=== PATIENT | male | born 1990 | race American Indian/Alaskan Native ===

== ENCOUNTER 2018-10-09 13:17 | Emergency (ER) | payer OTHER ==
[2018-10-09 13:24] VITALS: BP 113/65
--- NOTE | 2018-10-09 13:24 | Event Note ---
ED Screening Note ED Screening Note: pt states he was at a bar lounge and was smoking marijuana was feeling light- headed and states he had a syncopal episode two nights ago was also drinking ETOH denies any other drug use having generalized weakness/lightheadedness no further syncopal episodes no PMHx no allergies to meds no CP prior to syncopal episode This initial assessment/diagnostic orders/clinical plan/treatment(s) is/are subject to change based on patients health status, clinical progression and re- assessment by fellow clinical providers in the ED. Further treatment and workup at subsequent clinical providers discretion. Patient/guardian urged not to elope from the ED as their condition may be serious if not clinically assessed and managed. Initial orders include: labs, UA, UDS, EKG
--- NOTE | 2018-10-09 14:15 | Emergency Department Report ---
- General Chief complaint: Weakness Stated complaint: FAINT/LIGHTHEADED/FATIGUE Time Seen by Provider: 10/09/18 13:21 Source: patient Mode of arrival: Ambulatory Limitations: No Limitations - Related Data Allergies Allergy/AdvReac Type Severity Reaction Status Date / Time No Known Allergies Allergy Unverified 10/09/18 13:18 ED Review of Systems ROS: Stated complaint: FAINT/LIGHTHEADED/FATIGUE Other details as noted in HPI ED Past Medical Hx - Past Medical History Previous Medical History?: No - Surgical History Additional Surgical History: tube in right ear - Social History Smoking Status: Light Tobacco Smoker Substance Use Type: Marijuana ED Physical Exam - General Limitations: No Limitations ED Course Vital Signs 10/09/18 13:21 Temperature 98 F Pulse Rate 72 Respiratory 16 Rate Blood Pressure 113/65 O2 Sat by Pulse 100 Oximetry ED Medical Decision Making - Lab Data Result diagrams: 10/09/18 13:45 10/09/18 13:45 Critical care attestation.: If time is entered above; I have spent that time in minutes in the direct care of this critically ill patient, excluding procedure time. ED Disposition Clinical Impression: Non-cardiac syncope, Treatment refusal, Malaise and fatigue Disposition: DC-01 TO HOME OR SELFCARE Is pt being admited?: No Does the pt Need Aspirin: No Condition: Stable Instructions: Syncope (ED), Mesalamine (Rectal), Cannabis Abuse (ED), Fatigue (ED) Additional Instructions: Please continue to drink plenty of water and leave 88 ounce glasses of water daily. Refrain from using marijuana as this could be a toxin to body. You refused here head CT scan after complaining of passing out 2 in 1 day with redness and swelling to your scalp area. IF Symptoms worsens, please return to emergency room Referrals: [facility] [Outside] - 10/11/18 CARLY ARAUZ MD [Staff Physician] - 10/10/18 Forms: AMA Form, Accompanied Note, Work/School Release Form(ED)
[2018-10-09 14:38] LABS: BUN/Creatinine Ratio 14; Blood Urea Nitrogen 11 mg/dL (9-20); Calcium 9.3 mg/dL (8.4-10.2); Hemolysis Index 7
[2018-10-09 14:40] LABS: Hematocrit 42.5 % (35.5-45.6); Hemoglobin 14.5 gm/dl (11.8-15.2); Mean Corpuscular HGB Conc 34 % (32-34); Mean Corpuscular Volume 98 fl (84-94); Platelet Count 207 K/mm3 (140-440); Red Blood Count 4.36 M/mm3 (3.65-5.03); Red Cell Distribution Width 14.8 % (13.2-15.2)
[2018-10-09 14:45] LABS: Bilirubin,Urine NEG (Negative); Blood,Urine NEG (Negative); Color,Urine Straw (Yellow); Protein,Urine <15 mg/dL mg/dL (Negative); Urobilinogen,Urine < 2.0 mg/dL (<2.0); WBC,Urine < 1.0 /HPF (0.0-6.0)
[2018-10-09 14:54] LABS: Amphetamine Screen,Urine PRESUMPTIVE NEGATIVE; Benzodiazepines Screen,Urine PRESUMPTIVE NEGATIVE; Cocaine Screen,Urine PRESUMPTIVE NEGATIVE; Methadone Screen,Urine PRESUMPTIVE NEGATIVE; Opiate Screen,Urine PRESUMPTIVE NEGATIVE
[2018-10-09 15:20] LABS: Cannabinoid Screen,Urine PRESUMPTIVE POSITIVE
[2018-10-09 18:53] LABS: Anisocytosis 1+; Eosinophils % (Manual) 0 % (0.0-4.3); Platelet Estimate Consistent w Auto; Total Cells Counted 100
== END 2018-10-09 16:04 | disposition home or self-care (01) ==
LOC: ED 13:17
DX: R53.81 Other malaise (principal); R55 Syncope and collapse; F17.200 Nicotine dependence, unspecified, uncomplicated; F12.10 Cannabis abuse, uncomplicated; Z53.20 Procedure and treatment not carried out because of patient's decision for unspecified reasons
CPT/HCPCS: 36415; 80048; 80307; 81001; 83735; 85007; 85025; 93005; 93010